=== PATIENT | male | born 1940 | race Caucasian/White ===

== ENCOUNTER → 2016-06-30 | Outpatient (CLI) | payer MEDICARE, OTHER ==
[~2016-06-30] MED LIST: AUGMENTIN875 MG PO
== END | disposition home or self-care (01) ==
LOC: CDC 10:50
DX: I49.9 Cardiac arrhythmia, unspecified (principal)
CPT/HCPCS: 93000

== ENCOUNTER 2016-08-11 05:38 | Inpatient (IN) | payer OTHER ==
[~2016-08-11] VITALS: Ht 167.6 cm; Wt 118.0 kg
[~2016-08-11 05:38] MED LIST changes: +ASPIR 8181 M1 PO; +ATARAX,VISTARIL25 MG PO; +FLUVASTATIN ER80 MG PO; +METFORMIN HCL500 M1 PO; +OMEGA 3 PO; +ONE DAILY MUL400 MCG PO; +PRINIVIL10 MG PO; +TOVIAZ4 MG PO; +TRAVATAN Z5 ML LEFT EYE; +VITAMIN D35000 UNIT PO; +ZYRTEC10 M3 PO
[2016-08-11 06:12] VITALS: BP 135/83
[2016-08-11 06:41] LABS: POINT-OF-CARE METER ID UU14174212
[2016-08-11 10:51] LABS: POINT-OF-CARE METER ID UU13113675
[2016-08-11 14:48] LABS: MCV 89.3 FL (86-99)
[2016-08-11 16:00] VITALS: BP 138/65
[2016-08-11 17:37] LABS: POINT-OF-CARE METER ID UU13113725
[2016-08-12 03:24] VITALS: BP 118/55
[2016-08-12 05:36] LABS: HEMATOCRIT 31.2 % (38.0-50.0); MCH 28.8 PG (29.0-34.0); MCHC 32.7 G/DL (30.0-36.0); MCV 88.1 FL (86-99); MEAN PLAT.VOLUME 10.9 uM^3 (9.0-12.4); PLATELET COUNT 199 K/uL (156-360); RBC DIS.WIDTH-CV 14.5 % (11.8-14.6); RBC DIS.WIDTH-SD 47.1 % (39-53); RED BLOOD COUNT 3.54 M/uL (4.00-5.50)
[2016-08-12 05:50] LABS: WHITE BLOOD COUNT 8.2 K/uL (4.1-10.2)
[2016-08-12 06:03] LABS: ANION GAP 9 MEQ/L (2-14); CHLORIDE 105 MEQ/L (99-109); GLUCOSE 134 mg/dL (70-99); POTASSIUM 4.7 MEQ/L (3.7-5.4); SAMPLE HEMOLYSIS CHECK 0; SAMPLE ICTERIC CHECK 0; SAMPLE LIPEMIA CHECK 0; SODIUM 138 MEQ/L (136-147); UREA NITROGEN (BUN) 23 mg/dL (9-23)
[2016-08-12 06:10] LABS: GFR ESTIMATE (CALCULATED) 48 mL/min/
[2016-08-12 07:28] VITALS: BP 129/61
[2016-08-12 11:49] LABS: POINT-OF-CARE METER ID UU13113725
[2016-08-12 15:28] VITALS: BP 140/67
[2016-08-12 17:06] LABS: POINT-OF-CARE METER ID UU13113725
[2016-08-12 19:00] VITALS: BP 164/74
[2016-08-12 23:36] VITALS: BP 139/65
[2016-08-13 00:04] LABS: POINT-OF-CARE METER ID UU13113725
[2016-08-13 03:30] VITALS: BP 142/72
[2016-08-13 07:21] LABS: MCH 28.7 PG (29.0-34.0); MCHC 32.4 G/DL (30.0-36.0); MCV 88.5 FL (86-99); MEAN PLAT.VOLUME 10.7 uM^3 (9.0-12.4); PLATELET COUNT 179 K/uL (156-360); RBC DIS.WIDTH-CV 14.3 % (11.8-14.6); RBC DIS.WIDTH-SD 45.8 % (39-53); RED BLOOD COUNT 3.73 M/uL (4.00-5.50); WHITE BLOOD COUNT 10.6 K/uL (4.1-10.2)
[2016-08-13 07:40] VITALS: BP 138/68
[2016-08-13 07:46] LABS: ANION GAP 9 MEQ/L (2-14); CHLORIDE 103 MEQ/L (99-109); GFR ESTIMATE (CALCULATED) 57 mL/min/; GLUCOSE 127 mg/dL (70-99); POTASSIUM 4.7 MEQ/L (3.7-5.4); SAMPLE HEMOLYSIS CHECK 0; SAMPLE ICTERIC CHECK 0; SAMPLE LIPEMIA CHECK 0; SODIUM 137 MEQ/L (136-147); UREA NITROGEN (BUN) 17 mg/dL (9-23)
[2016-08-13 11:00] VITALS: BP 136/72
[2016-08-13 11:51] LABS: POINT-OF-CARE METER ID UU13113725
[2016-08-13] MEDS ORDERED: PERCOCET 5/31 TABLET PO (16:56)
[2016-08-13 18:00] VITALS: BP 157/74
[2016-08-13 19:20] VITALS: BP 126/82
[2016-08-13 23:15] VITALS: BP 148/68
[2016-08-14 03:11] VITALS: BP 142/75
[2016-08-14 06:32] LABS: POINT-OF-CARE METER ID UU13113725
[2016-08-14 06:39] VITALS: BP 114/69
== END 2016-08-14 12:42 | disposition home or self-care (01) | DRG 658 ==
LOC: 2SOUTH 05:38 → 5EAST 05:38 → 2SOUTH 09:18 → 5EAST 15:19 → 2SOUTH 15:59 → 5EAST 08-14 12:42
PROVIDERS: Nurse Practitioner Adult Health; Urology
PROC: 0TT14ZZ Resection of Left Kidney, Percutaneous Endoscopic Approach (ICD-10-PCS; principal; 2016-08-11)
DX: C64.2 Malignant neoplasm of left kidney, except renal pelvis (principal); R31.0 Gross hematuria; I10 Essential (primary) hypertension; E11.9 Type 2 diabetes mellitus without complications; N40.0 Benign prostatic hyperplasia without lower urinary tract symptoms; C67.8 Malignant neoplasm of overlapping sites of bladder; Z87.891 Personal history of nicotine dependence
CPT/HCPCS: 80048; 82948; 85014; 85018; 85027; 88307; 94660; 94799; J0131; J0330; J0690; J1100; J1170; J1815; J1885; J2405; J2710; J3010; J7120; Q0177